=== PATIENT | male | born 2000 | race Caucasian/White ===

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

== ENCOUNTER 2023-03-08 17:41 | Emergency (ER) | payer OTHER, SELFPAY ==
[2023-03-08 17:46] VITALS: BP 134/71; PULSE 91; RESP 18; TEMP 37.1; O2SAT 98; BMI 26.1
[2023-03-08] MEDS: ONDANSETRON 4 MG ODT SL (18:23)
--- NOTE | 2023-03-09 12:39 | ED_ITS ---
HPI - Nausea/Vomiting/Diarrhea <Darlyn Fitch PA-C - Last Filed: 03/09/23 12:45> General Chief complaint: Nausea/Vomiting/Diarrhea Stated complaint: F/V/D T-3 STOMACH CRAMPS Time Seen by Provider: 03/08/23 17:57 Source: patient Mode of arrival: Ambulatory History of Present Illness HPI Narrative: 22-year-old male presents to the ED with nausea, vomiting, diarrhea, fever for 4 days. Patient endorses a fever with T-max 103? F, generalized abdominal cramping. No chest pain, shortness of breath, dysuria, hematochezia, melena. Denies eating any suspicious foods recently. Related Data Previous Rx's Medication Instructions Recorded ondansetron 4 mg disintegrating 4 mg PO Q8H PRN nausea and 03/08/23 tablet vomiting #14 tabs Allergies Allergy/AdvReac Type Severity Reaction Status Date / Time No Known Drug Allergies Allergy Verified 03/08/23 17:46 Review of Systems <Darlyn Fitch PA-C - Last Filed: 03/09/23 12:45> Constitutional Constitutional: Denies chills, Denies fatigue, Reports fever(s), Denies frequent falls, Denies lethargy and Denies weakness Eyes Eyes: Denies change in vision, Denies eye discharge, Denies irritation and Denies loss of vision ENT Ears, Nose, Mouth, and Throat: Denies change in voice, Denies dizziness, Denies neck pain, Denies sore throat and Denies throat swelling Cardiovascular Cardiovascular: Denies chest pain, Denies irregular heart rhythm, Denies lightheadedness, Denies palpitations, Denies dyspnea, Denies dyspnea on exertion and Denies orthopnea Respiratory Respiratory: Denies cough, Denies dyspnea, Denies dyspnea on exertion and Denies wheezing Gastrointestinal Gastrointestinal: Denies abdominal pain, Denies change in bowel habits, Reports cramping, Reports diarrhea, Reports nausea and Reports vomiting Musculoskeletal Musculoskeletal: Denies neck pain and Denies numbness Integumentary/Breasts Skin/Breast: Denies pruritus, Denies erythema, Denies rash and Denies wounds Neurologic Neurologic: Denies behavioral changes, Denies confusion, Denies dizziness, Denie s frequent falls, Denies loss of vision, Denies numbness and Denies weakness Psychiatric Psychiatric: Denies anxiety, Denies behavioral changes, Denies confusion, Denies depression, Denies homicidal ideation and Denies suicidal ideation Endocrine Endocrine: Denies fatigue, Denies flushing and Denies palpitations Hematologic/Lymphatic Hematologic/Lymphatic: Denies easy bruising Allergic/Immunologic Allergic/Immunologic: Denies urticaria, Denies throat swelling and Denies wheezing Patient History <Darlyn Fitch PA-C - Last Filed: 03/09/23 12:45> Medical History Family history of type 1 diabetes mellitus Surgical History Anesthesia History of removal of cyst (~2019) History of tonsillectomy (~2006) Family History Mother Diabetes mellitus Hypertension Social History Smoking Status: Never smoker Smoking Status: Never smoker tobacco type: vaping alcohol intake frequency: 0-2 drinks per day Substance Use Type: does not use Exam <Darlyn Fitch PA-C - Last Filed: 03/09/23 12:45> Narrative Exam Narrative: Const General:?cooperative, healthy appearing and comfortable [facility] Head:?normal to inspection Ears:?hearing grossly normal bilaterally Nose:?external nose normal Face and sinus:?normal facial exam and sinuses nontender Mouth:?oral mucosae normal Throat:?posterior oropharynx normal Eyes General:?appearance normal, both eyes and all related structures Neck Neck:?normal visual inspection and no lymphadenopathy noted Resp Effort & Inspection:?normal respiratory effort Auscultation:?clear to auscultation bilaterally Cardio Rate:?regular rate Rhythm:?regular rhythm GI Abdomen is soft, nondistended, nontender to palpation. Neuro General:?patient alert, patient awake and patient oriented x3 Initial Vital Signs Initial Vital Signs: Vital Signs Temperature 98.7 F 03/08/23 17:46 Pulse Rate 91 H 03/08/23 17:46 Respiratory Rate 18 03/08/23 17:46 Blood Pressure 134/71 03/08/23 17:46 Pulse Oximetry 98 03/08/23 17:46 Oxygen Delivery Method Room Air 03/08/23 17:46 <Nadeem Mittal MD - Last Filed: 03/18/23 10:08> Initial Vital Signs Initial Vital Signs: Vital Signs Temperature 98.7 F 03/08/23 17:46 Pulse Rate 91 H 03/08/23 17:46 Respiratory Rate 18 03/08/23 17:46 Blood Pressure 134/71 03/08/23 17:46 Pulse Oximetry 98 03/08/23 17:46 Oxygen Delivery Method Room Air 03/08/23 17:46 Course <Darlyn Fitch PA-C - Last Filed: 03/09/23 12:45> Orders Ordered: Discontinued Medications Ondansetron HCl (Ondansetron 4 Mg Odt) 4 mg SL NOW ONE Stop: 03/08/23 18:20 Last Admin: 03/08/23 18:23 Dose: 4 mg Documented By: JANY <Nadeem Mittal MD - Last Filed: 03/18/23 10:08> Orders Ordered: Discontinued Medications Ondansetron HCl (Ondansetron 4 Mg Odt) 4 mg SL NOW ONE Stop: 03/08/23 18:20 Last Admin: 03/08/23 18:23 Dose: 4 mg Documented By: JANY MDM - Nausea/Vomiting/Diarrhea <Darlyn Fitch PA-C - Last Filed: 03/09/23 12:45> MDM Narrative Medical decision making narrative: 22-year-old male presents to the ED with nausea, vomiting, diarrhea, fever for 4 days. Concern for viral URI versus gastroenteritis versus other. Will give Zofran. Nausea controlled with Zofran. Discussed supportive measures and good hydration with patient. Prescribed Zofran. Recommend follow-up with PCP. ED return precautions discussed with patient. Patient verbalized understanding. Medical records reviewed: Yes Discharge Plan Departure Patient Disposition: Home Clinical Impression: Fever Qualifiers: Fever type: unspecified Qualified Code(s): R50.9 - Fever, unspecified Nausea and vomiting Qualifiers: Vomiting type: unspecified Qualified Code(s): R11.2 - Nausea with vomiting, unspecified Instructions: DI for Bacterial Gastroenteritis -- Adult Activity Restrictions/Additional Instructions: You were evaluated in the ED today for a fever, vomiting, diarrhea. It is likely that your symptoms are from either food poisoning or gastroenteritis versus a upper respiratory infection such as influenza. You are being prescribed Zofran for the nausea. Please ensure good hydration. You may take Tylenol, ibuprofen for fevers and aches and pains. Please follow-up with your PCP as soon as possible. Return to the ED if you have worsening symptoms, persistent vomiting, unable to keep any fluids down. Prescriptions: New ondansetron 4 mg tablet,disintegrating 4 mg PO Q8H PRN (Reason: nausea and vomiting) Qty: 14 0RF Referrals: Edgar Hinkle MD [Primary Care Provider] - Stand Alone Forms: Patient Portal/API ED Sign-out <Nadeem Mittal MD - Last Filed: 03/18/23 10:08> [facility] Att[facility]: I was immediately available in the department for consultation. This d ocumentation has been reviewed and I agree with assessment and plan. Supervised by Nadeem Mittal MD
== END 2023-03-08 18:35 | disposition home or self-care (01) ==
PROVIDERS: Emergency Provider Student in an Organized Health Care Education/Training Program; PCP Family Medicine
DX: R50.9 Fever, unspecified (principal); R11.2 Nausea with vomiting, unspecified
CPT/HCPCS: 99283

== ENCOUNTER 2025-02-22 13:39 | Emergency (ER) | payer OTHER, SELFPAY ==
[2025-02-22 13:53] VITALS: BP 144/101; PULSE 88; RESP 16; TEMP 37; O2SAT 99; BMI 30.4
--- OUTSIDE RECORDS SUMMARY | 2025-02-22 14:04 | XMS_ITS | Clinical Summary ---
Author Organization [facility] Address [address] [place] [address] Care Team Providers Care Orthopedic Physician Name Role Phone Unavailable Primary Care Provider Unavailabl e Source Comments NOTE: The information displayed by Care Everywhere is extracted from the complete medical record and may not identify all current or past patient conditions.[facility] Immunizations Immunization Administration Dates Next Due DT (Diphtheria, Tetanus (PF)) 09/21/2002 Hib, unspecified formulation (Haemophilus Influenza Type B) 09/21/2002,2001 IPV (Polio) 03/31/2006,09/21/2002,2001 MMR (Measles, Mumps, Rubella) 03/31/2006, 003 Tdap (Tetanus, Diphtheria, a cellular Pertussis) 09/16/2011 Social History Tobacco Use Types Packs/Day Years Used Date Smoking Tobacco: Never Assessed Sex and Gender Information Value Date Recorded Sex Assigned at Not on file Legal Sex Male 4:22 PM PDT Gender Identity Not on file Sexual Orientation Not on file Plan of Treatment Health Maintenance Due Date Last Done Comments Discuss 1X Lifetime Syphilis Screening 2001 Blood Pressure Check 2001 Adult HIV Screen (1-time) 2016 Hep C Screening (1-time) 2019 Vaccine: [id number] (4 - T d or Tdap) 09/15/2021 09/16/2011, 03/31/2006, 09/21/2002 FLU VACCINE (#1) 11/07/2024 12/02/2011 Vaccine: COVID-19 ( season) 2024 Vaccine: HPV Completed 12/10/2016, 12/02/2011 Insurance [facility] [employer] for [employer]
--- NOTE | 2025-02-22 14:05 | DI.RAD.S_ITS ---
PROCEDURE: XR CHEST 1V INDICATIONS: LUQ pain; pain with deep breath TECHNIQUE: One view of the chest was acquired. COMPARISON: None. FINDINGS: Surgical changes and devices: None. Lungs and pleura: Lungs are clear. No pleural effusions or pneumothorax. Mediastinum: Mediastinal contours appear normal. Heart size is normal. Bones and chest wall: No suspicious bony lesions. Overlying soft tissues appear unremarkable. IMPRESSION: No acute cardiopulmonary abnormality is seen. Dictated by: Jack Lam M.D. on 02/22/2025 at 14:44 Approved by: Jack Lam M.D. on 02/22/2025 at 14:44
--- NOTE | 2025-02-22 14:05 | EKG_ITS ---
[facility] [address] [place] [id number] Test Date: 2025-02-22 Pat Name: Emil Langley Department: [facility] Room: Gender: Male [employer] Machine Servicer Repairer: RICHIE : 2000 Requested By: Order Number: [id number] Reading MD: Alexander Pitt MD Measurements Intervals [place] Rate: 69 P: 58 [place]: 154 QRS: 60 QRSD: 102 T: 33 QT: 360 QTc: 385 Interpretive Statements Normal sinus rhythm with sinus arrhythmia Electronically Signed On 02-23-2025 7:17:25 PST by Alexander Pitt MD
[2025-02-22 14:24] LABS: Add Manual Diff / Slide Review NO; Hematocrit 43.1 % (41-53); Hemoglobin 15.1 g/dL (13.5-17.5); Lymphocytes Absolute Auto 1500 /uL (1100-4500); Mean Corpuscular HGB Conc 34.9 % (30-36); Mean Corpuscular Hemoglobin 28.8 PG (26-34); Mean Corpuscular Volume 82.4 fL (80-100); Platelet Count 337 X10^3/uL (150-400)
[2025-02-22 14:33] LABS: INR 1.1 (0.9-1.3); Prothrombin Time 12.2 SECONDS (9.4-12.5)
[2025-02-22 14:35] LABS: PTT Partial Thromboplastin Tim 30 SECONDS (25.1-36.5)
[2025-02-22 14:40] LABS: Alanine Aminotransferase 45 IU/L (<50); Albumin 5.0 g/dL (3.5-5.0); Albumin Globulin Ratio 1.6 (1.0-2.8); Alkaline Phosphatase 83 U/L (38-126); Blood Urea Nitrogen 10 mg/dL (9-20); Calcium 9.7 mg/dL (8.4-10.2); Carbon Dioxide 26 mmol/L (22-32); Chloride 103 mmol/L (98-107); Estimated Glomerular Filt Rate > 60 mL/min (>60); Globulin 3.1 g/dL (1.7-4.1); Glucose 97 mg/dL (70-99); HEMOLYSIS 15 (0-50); Lipase 62 U/L (23-300); Magnesium 2.0 mg/dL (1.6-2.3); Potassium 4.0 mmol/L (3.4-5.1); Sodium 139 mmol/L (137-145); Total Protein 8.1 g/dL (6.3-8.2)
[2025-02-22 14:42] LABS: Culture Indicated Urine Cult Not Indicated
[2025-02-22 14:52] LABS: NT-proBNP (BNP-Adult 18+) < 20 pg/mL (<125); Troponin I < 0.012 ng/mL (0.01-0.034)
--- NOTE | 2025-02-22 15:30 | ED_ITS ---
HPI - Abdominal Pain <Olesya Eddy PA-C - Last Filed: 02/22/25 18:08> General Chief Complaint: Abdominal Pain Stated Complaint: left sided pain Time Seen by Provider: 02/22/25 14:04 Source: patient Mode of arrival: Ambulatory History of Present Illness HPI narrative: Mr. Langley is a pleasant 24-year-old male with no reported past medical history who presents to the emergency department for left upper abdominal pain x 5 days. Denies any trauma, describes the pain is under the left ribs and painful to take a deep breath because it increase his pressure in his abdomen. He is not feeling short of breath, no dyspnea on exertion or chest pain. Denies any injury that precipitated the pain, it started mildly on Thursday and has gotten progressively worse. He circles a large area in the left upper quadrant of his abdomen states that the pain is focal to this area. Denies nausea, vomiting, diarrhea, constipation, hematuria, dysuria, chest pain, coughing, fevers, chills, flu-like symptoms, rashes or bruising. He has taken Tylenol which has not helped with the pain. Related Data Previous Rx's ?Medication ?Instructions ?Recorded ondansetron 4 mg disintegrating 4 mg PO Q8H PRN nausea and 03/08/23 tablet vomiting #14 tabs ketorolac 10 mg tablet 10 mg PO Q8H PRN pain 5 days #14 02/22/25 tabs Allergies Allergy/AdvReac Type Severity Reaction Status Date / Time No Known Drug Allergies Allergy Verified 03/08/23 17:46 Review of Systems <Olesya Eddy PA-C - Last Filed: 02/22/25 18:08> Review of Systems ROS Unobtainable: All systems reviewed & are unremarkable except as noted in HPI and below Patient History <Olesya Eddy PA-C - Last Filed: 02/22/25 18:08> Medical History Family history of type 1 diabetes mellitus Surgical History Anesthesia History of removal of cyst (~2019) History of tonsillectomy (~2006) Family History Mother Diabetes mellitus Hypertension Social History Smoking Status: Current every day smoker Smoking Status: Current every day smoker tobacco type: vaping alcohol intake frequency: 0-2 drinks per day Alcohol type: beer Exam <Olesya Eddy PA-C - Last Filed: 02/22/25 18:08> Narrative Exam Narrative: GENERAL: 24 year old patient appears stated age. Well-developed patient, in no acute distress. HEAD: Atraumatic. Normocephalic. EYES: No scleral icterus. No injection or drainage. NECK: Trachea midline. Cervical ROM intact. CARDIOVASCULAR: Regular rate and rhythm. RESPIRATORY: ?Nonlabored respirations. ?Speaking in clear, full sentences. ?Clear to auscultation. Breath sounds equal bilaterally. No wheezes, rales, or rhonchi. ? GASTROINTESTINAL: Abdomen soft, nondistended. Patient has tenderness to palpation of the left upper quadrant including overlying the base of the anterior ribcage. No skin changes. No rebound or guarding. Negative Choudhury's sign. Negative McBurney's point tenderness. EXTREMITIES: No lower extremity edema. BACK: No CVA tenderness bilaterally. NEURO: AOx3. ?Clear speech. ?Moves all 4 extremities appropriately. SKIN: No rash or erythema of visible areas Initial Vital Signs Initial Vital Signs: Vital Signs Temperature 98.6 F 02/22/25 13:53 Pulse Rate 88 02/22/25 13:53 Respiratory Rate 16 02/22/25 13:53 Blood Pressure 144/101 H 02/22/25 13:53 Pulse Oximetry 99 02/22/25 13:53 Oxygen Delivery Method Room Air 02/22/25 13:53 <Noemí Valdes DO - Last Filed: 02/23/25 07:22> Initial Vital Signs Initial Vital Signs: Vital Signs Temperature 98.6 F 02/22/25 13:53 Pulse Rate 88 02/22/25 13:53 Respiratory Rate 16 02/22/25 13:53 Blood Pressure 144/101 H 02/22/25 13:53 Pulse Oximetry 99 02/22/25 13:53 Oxygen Delivery Method Room Air 02/22/25 13:53 Scores <Olesya Eddy PA-C - Last Filed: 02/22/25 18:08> HEART Score Heart Score history: Slightly Suspicious Heart Score EKG: Normal Heart Score Age: < 45 years old Heart Score risk factors: No known risk factors Heart Score troponin: < or = to normal limit Heart Score Total: 0 PERC Score Age greater than or equal to 50 years: No Heart rate greater than or equal to 100 bpm: No Room Air O2 Sat less than 95%: No Unilateral leg swelling: No Recent trauma or surgery: No Hemoptysis: No Prior PE or DVT: No Hormone Use: No Total PERC Score: 0 <Noemí Valdes DO - Last Filed: 02/23/25 07:22> HEART Score Heart Score Total: 0 PERC Score Total PERC Score: 0 Course <Olesya Eddy PA-C - Last Filed: 02/22/25 18:08> Orders Ordered: Discontinued Medications Ketorolac Tromethamine (Ketorolac 30 Mg/Ml Vial) 15 mg IV NOW ONE Stop: 02/22/25 15:39 Last Admin: 02/22/25 15:51 Dose: 15 mg Documented By: HERMANN Vital Signs Vital signs: Vital Signs - 8 hr 02/22/25 13:53 02/22/25 15:53 Temperature 98.6 F Pulse Rate 88 68 Respiratory Rate 16 18 Blood Pressure 144/101 H 158/101 H Pulse Oximetry 99 99 Oxygen Delivery Method Room Air Room Air <Noemí Valdes DO - Last Filed: 02/23/25 07:22> Orders Ordered: Discontinued Medications Ketorolac Tromethamine (Ketorolac 30 Mg/Ml Vial) 15 mg IV NOW ONE Stop: 02/22/25 15:39 Last Admin: 02/22/25 15:51 Dose: 15 mg Documented By: [facility] Vital Signs Vital signs: Vital Signs - 8 hr 02/22/25 13:53 02/22/25 15:53 Temperature 98.6 F Pulse Rate 88 68 Respiratory Rate 16 18 Blood Pressure 144/101 H 158/101 H Pulse Oximetry 99 99 Oxygen Delivery Method Room Air Room Air MDM - Abdominal Pain <Olesya Eddy PA-C - Last Filed: 02/22/25 18:08> Medical Records Attestation: I reviewed the patient's medical records. Lab Data 02/22/25 14:15 02/22/25 14:15 Labs: Lab Results 12/17/25 12/17/25 Range/Units 14:10 14:15 WBC 6.9 (4.5-11.0) X10^3/uL RBC 5.23 (4.5-5.9) X10^6/uL Hgb 15.1 (13.5-17.5) g/dL Hct 43.1 (41-53) % MCV 82.4 (80-100) fL MCH 28.8 (26-34) PG MCHC 34.9 (30-36) % RDW 13.3 (11.6-14.8) % Plt Count 337 (150-400) X10^3/uL Neut % (Auto) 68.9 (50-75) % Lymph % (Auto) 21.0 L (25-40) % [place] % (Auto) 7.5 (3-14) % Eos % (Auto) 2.2 (2-4) % Baso % (Auto) 0.4 (0-2) % Neut # (Auto) 4800 (7081-5390) /uL Lymph # (Auto) 1500 (3866-7072) /uL [place] # (Auto) 500 (0-900) /uL Eos # (Auto) 200 (0-450) /uL Baso # (Auto) 0 (0-100) /uL PT 12.2 (9.4-12.5) SECONDS INR 1.1 (0.9-1.3) APTT 30 (25.1-36.5) SECONDS Sodium 139 (137-145) mmol/L Potassium 4.0 (3.4-5.1) mmol/L Chloride 103 (98-107) mmol/L Carbon Dioxide 26 (22-32) mmol/L BUN 10 (9-20) mg/dL Creatinine 0.76 (0.66-1.25) mg/dL Estimated GFR > 60 (>60) mL/min BUN/Creatinine Ratio 13.2 (6-22) Glucose 97 (70-99) mg/dL Calcium 9.7 (8.4-10.2) mg/dL Magnesium 2.0 (1.6-2.3) mg/dL Total Bilirubin 1.1 (0.2-1.3) mg/dL AST 47 (17-59) IU/L ALT 45 (<50) IU/L Alkaline Phosphatase 83 (38-126) U/L Troponin I < 0.012 (0.01-0.034) ng/mL NT-Pro-B Natriuret Pep < 20 (<125) pg/mL Total Protein 8.1 (6.3-8.2) g/dL Albumin 5.0 (3.5-5.0) g/dL Globulin 3.1 (1.7-4.1) g/dL Albumin/Globulin Ratio 1.6 (1.0-2.8) Lipase 62 (23-300) U/L Urine RBC 1-5/hpf (0-5/HPF) Urine WBC None seen (0-5/HPF) Ur Squamous Epith Cells None seen (0-5/HPF) Urine Bacteria None seen (None) Ur Culture Indicated? Cult not indicated Vol Urine Centrifuged 10ml (spun) Point of care testing: Urine Dip Bedside Urine Glucose Negative Bedside Urine Bilirubin - Negative Bedside Urine Ketone - Negative Urine Specific [place] 1.005 Bedside Urine Occult Blood +/- Bedside Urine pH 7.0 Bedside Urine Protein - Negative Bedside Urine Urobilinogen - Negative Bedside Urine Nitrite - Negative Bedside Urine Leukocytes - Negative Esterase Imaging Data Chest x-ray: Radiologist's Impression: PROCEDURE: XR CHEST 1V INDICATIONS: LUQ pain; pain with deep breath TECHNIQUE: One view of the chest was acquired. COMPARISON: None. FINDINGS: Surgical changes and devices: None. Lungs and pleura: Lungs are clear. No pleural effusions or pneumothorax. Mediastinum: Mediastinal contours appear normal. Heart size is normal. Bones and chest wall: No suspicious bony lesions. Overlying soft tissues appear unremarkable. IMPRESSION: No acute cardiopulmonary abnormality is seen. Dictated by: Jack Lam M.D. on 02/22/2025 at 14:44 Approved by: Jack Lam M.D. on 02/22/2025 at 14:44 CT scan - abdomen/pelvis: Radiologist's Impression: PROCEDURE: CT ABDOMEN PELVIS W CON INDICATIONS: LUQ abd pain; lower rib area TECHNIQUE: After the administration of intravenous contrast, axial sections acquired from the lung bases to the pubic symphysis. Coronal and sagittal reformats were performed. For radiation dose reduction, the following was used: automated exposure control, adjustment of mA and/or kV according to patient size. COMPARISON: None. FINDINGS: Image quality: Diagnostic. Lower Chest: No significant findings. ABDOMEN: Liver: No solid mass. Mild diffuse hepatic steatosis. Gallbladder: No radiopaque gallstones or wall thickening. Biliary ducts: No biliary dilation. Pancreas: No ductal dilation. Spleen: Size is within normal limits. Adrenal Glands: No adrenal nodules. Kidneys and Ureters: No hydronephrosis. No solid mass. No complex renal cystic lesion which requires follow up. Stomach and Bowel: Normal colonic caliber, without significant wall thickening. Peritoneum: No abnormal intraperitoneal fluid. No free air. Ventral Wall: No significant ventral hernia. Abdominal Nodes: No retroperitoneal or mesenteric adenopathy by size criteria. Vessels: Aorta and inferior vena cava are normal in size. PELVIS: Pelvic Organs: Unremarkable. Bladder: No bladder wall thickening, accounting for underdistention. Pelvic Nodes: No enlarged lymph nodes. Miscellaneous: No inguinal hernias are seen. Bones: No aggressive osseous abnormality. IMPRESSION: No acute abdominal process. No findings which explain left upper quadrant pain. Mild diffuse hepatic steatosis. Dictated by: Jack Lam M.D. on 02/22/2025 at 16:44 Approved by: Jack Lam M.D. on 02/22/2025 at 16:46 [facility] Narrative Medical decision making narrative: 24-year-old male with no reported past medical history who presents to the emergency department for left upper abdominal pain x 5 days. Differential diagnosis includes but is not limited to pancreatitis, gastritis, colitis, diverticulitis, UTI, nephrolithiasis, ureterolithiasis, costochondritis, etc. On exam patient is in no acute distress, nontoxic appearing, vital signs within normal limits except for elevated blood pressure 144/101. Patient has a focal area of pain on the anterior left upper quadrant of the abdomen somewhat overlying the base of the ribs. No skin changes or trauma. No rebound or guarding on abdominal exam but he does have tenderness in this area. Abdominal labs obtained in triage in addition EKG, troponin, we will add on CT abdomen pelvis with IV contrast. Labs reveal normal WBC count 6.9, hemoglobin 15.1 hematocrit 43.1. Platelets 337. Normal sodium 139, potassium 4.0, BUN 10 creatinine 0.76. Glucose 97. Undetectable troponin and BNP. Normal LFTs. Normal lipase 62. Urine reveals 1-5 RBCs, no signs of infection. Chest x-ray reveals no acute cardiopulmonary abnormality. CT reveals no acute abdominal process. No findings which explained left upper quadrant pain. Mild diffuse hepatic steatosis. 1750: Printed and reviewed all imaging results with the patient. He is feeling much better after Toradol. We discussed possible musculoskeletal etiologies of his pain and discussed very strict ER return precautions. He was prescribed a few doses of Toradol as this resolved his pain today. Recommend that he rest, hydrate, continue to monitor symptoms, follow up with the PCP, return to ER for any new or worsening symptoms. He verbalized understanding of ER return precautions, all questions answered, vital signs within normal limits, he is stable for discharge home. <Noemí Valdes, - Last Filed: 02/23/25 07:22> Lab Data Labs: Lab Results 02/22/25 02/22/25 Range/Units 14:10 14:15 WBC 6.9 (4.5-11.0) X10^3/uL RBC 5.23 (4.5-5.9) X10^6/uL Hgb 15.1 (13.5-17.5) g/dL Hct 43.1 (41-53) % MCV 82.4 (80-100) fL MCH 28.8 (26-34) PG MCHC 34.9 (30-36) % RDW 13.3 (11.6-14.8) % Plt Count 337 (150-400) X10^3/uL Neut % (Auto) 68.9 (50-75) % Lymph % (Auto) 21.0 L (25-40) % [place] % (Auto) 7.5 (3-14) % Eos % (Auto) 2.2 (2-4) % Baso % (Auto) 0.4 (0-2) % Neut # (Auto) 4800 (5687-1335) /uL Lymph # (Auto) 1500 (4032-2407) /uL [place] # (Auto) 500 (0-900) /uL Eos # (Auto) 200 (0-450) /uL Baso # (Auto) 0 (0-100) /uL PT 12.2 (9.4-12.5) SECONDS INR 1.1 (0.9-1.3) APTT 30 (25.1-36.5) SECONDS Sodium 139 (137-145) mmol/L Potassium 4.0 (3.4-5.1) mmol/L Chloride 103 (98-107) mmol/L Carbon Dioxide 26 (22-32) mmol/L BUN 10 (9-20) mg/dL Creatinine 0.76 (0.66-1.25) mg/dL Estimated GFR > 60 (>60) mL/min BUN/Creatinine Ratio 13.2 (6-22) Glucose 97 (70-99) mg/dL Calcium 9.7 (8.4-10.2) mg/dL Magnesium 2.0 (1.6-2.3) mg/dL Total Bilirubin 1.1 (0.2-1.3) mg/dL AST 47 (17-59) IU/L ALT 45 (<50) IU/L Alkaline Phosphatase 83 (38-126) U/L Troponin I < 0.012 (0.01-0.034) ng/mL NT-Pro-B Natriuret Pep < 20 (<125) pg/mL Total Protein 8.1 (6.3-8.2) g/dL Albumin 5.0 (3.5-5.0) g/dL Globulin 3.1 (1.7-4.1) g/dL Albumin/Globulin Ratio 1.6 (1.0-2.8) Lipase 62 (23-300) U/L Urine RBC 1-5/hpf (0-5/HPF) Urine WBC None seen (0-5/HPF) Ur Squamous Epith Cells None seen (0-5/HPF) Urine Bacteria None seen (None) Ur Culture Indicated? Cult not indicated Vol Urine Centrifuged 10ml (spun) Point of care testing: Urine Dip Bedside Urine Glucose Negative Bedside Urine Bilirubin - Negative Bedside Urine Ketone - Negative Urine Specific [place] 1.005 Bedside Urine Occult Blood +/- Bedside Urine pH 7.0 Bedside Urine Protein - Negative Bedside Urine Urobilinogen - Negative Bedside Urine Nitrite - Negative Bedside Urine Leukocytes - Negative Esterase Discharge Plan Departure Patient Disposition: Home Clinical Impression: Abdominal pain, acute, left upper quadrant, Hepatic steatosis Instructions: DI for Abdominal Pain-Adult, DI for Costochondritis Activity Restrictions/Additional Instructions: Dear Mr. Langley, Thank you for coming to the emergency department. Today you were evaluated for left upper abdominal pain. Your workup today was overall reassuring. Your CT scan did reveal mild fatty liver disease. Sometimes, we do not always find the cause for your symptoms in one ER visit. The findings on your exam today and on your blood work and/or imaging is reassuring. At this time, it is not 100% certain what is causing your symptoms, but we feel you can be discharged from the emergency department. It is possible this may worsen or you may get better. Please, if you get worse or your symptoms change, return to the emergency department. Please follow up with your primary care doctor within the next 2-3 days for ER follow-up. (If you do not have a PCP you can call [phone]. ?to schedule an appointment with an [facility] Primary Care Provider) IF YOU DEVELOP ANY NEW OR WORSENING SYMPTOMS, RETURN TO THE ER! Please read the attached instructions, they highlight more specific treatments and interventions for you at home. Thank you for letting me participate in your care, Olesya Eddy PA-C Prescriptions: New ketorolac 10 mg tablet 10 mg PO Q8H PRN (Reason: pain) 5 Days Qty: 14 0RF No Action ondansetron 4 mg tablet,disintegrating 4 mg PO Q8H PRN (Reason: nausea and vomiting) Qty: 14 0RF Referrals: Edgar Hinkle MD [Primary Care Provider, Family Practice] Stand Alone Forms: Patient Portal/API, Work Release Note ED Sign-out <Noemí Valdes, - Last Filed: 02/23/25 07:22> Cosign ED Attending Jazielature Attestation: I was available for consultation.
--- NOTE | 2025-02-22 15:38 | DI.CT.S_ITS ---
PROCEDURE: CT ABDOMEN PELVIS W CON INDICATIONS: LUQ abd pain; lower rib area TECHNIQUE: After the administration of intravenous contrast, axial sections acquired from the lung bases to the pubic symphysis. Coronal and sagittal reformats were performed. For radiation dose reduction, the following was used: automated exposure control, adjustment of mA and/or kV according to patient size. COMPARISON: None. FINDINGS: Image quality: Diagnostic. Lower Chest: No significant findings. ABDOMEN: Liver: No solid mass. Mild diffuse hepatic steatosis. Gallbladder: No radiopaque gallstones or wall thickening. Biliary ducts: No biliary dilation. Pancreas: No ductal dilation. Spleen: Size is within normal limits. Adrenal Glands: No adrenal nodules. Kidneys and Ureters: No hydronephrosis. No solid mass. No complex renal cystic lesion which requires follow up. Stomach and Bowel: Normal colonic caliber, without significant wall thickening. Peritoneum: No abnormal intraperitoneal fluid. No free air. Ventral Wall: No significant ventral hernia. Abdominal Nodes: No retroperitoneal or mesenteric adenopathy by size criteria. Vessels: Aorta and inferior vena cava are normal in size. PELVIS: Pelvic Organs: Unremarkable. Bladder: No bladder wall thickening, accounting for underdistention. Pelvic Nodes: No enlarged lymph nodes. Miscellaneous: No inguinal hernias are seen. Bones: No aggressive osseous abnormality. IMPRESSION: No acute abdominal process. No findings which explain left upper quadrant pain. Mild diffuse hepatic steatosis. Dictated by: Jack Lam M.D. on 02/22/2025 at 16:44 Approved by: Jack Lam M.D. on 02/22/2025 at 16:46
[2025-02-22] MEDS: KETOROLAC 30 MG/ML VIAL 15 MG IV (15:51)
[2025-02-22 15:53] VITALS: BP 158/101; PULSE 68; RESP 18; O2SAT 99
[2025-02-22 17:57] VITALS: BP 138/91; PULSE 63; RESP 18; O2SAT 99
== END 2025-02-22 18:17 | disposition home or self-care (01) ==
PROVIDERS: Emergency Provider Physician Assistant; PCP Family Medicine
DX: K76.0 Fatty (change of) liver, not elsewhere classified (principal)
CPT/HCPCS: 36415; 71045; 74177; 80053; 81003; 81015; 83690; 83735; 83880; 84484; 85025; 85610; 85730; 93005; 96374; 99284; J1885; Q9967